=== PATIENT | male | born 1995 | race African-American/Black ===

== ENCOUNTER 2019-10-16 19:22 | Emergency (ER) | payer SELFPAY ==
--- NOTE | ~2019-10-16 | XR_ITS ---
EXAMINATION: XR chest 2V 10/16/2019 21:03 INDICATION: Chest pain and dyspnea PROCEDURE: 2 view chest COMPARISON: No prior studies for comparison. FINDINGS: The lungs are clear. The cardiomediastinal silhouette is within normal limits. There are no pleural effusions. There is no pneumothorax suspected. IMPRESSION: 1: NO ACUTE CARDIOPULMONARY DISEASE. Reviewed, dictated and finalized at location A.
[2019-10-16 19:29] VITALS: BP 130/76; PULSE 75; RESP 19; TEMP 36.2; O2SAT 100
--- NOTE | 2019-10-16 19:32 | ECG_ITS ---
Measurements Intervals [place] Rate: 76 P: 59 MD: 144 QRS: 51 QRSD: 89 T: 38 QT: 345 QTc: 390 Interpretive Statements SINUS RHYTHM NONSPECIFIC T-WAVE ABNORMALITY- INFERIOR LEADS BORDERLINE ECG Electronically Signed On 10-17-2019 6:48:06 CDT by Blas Palmer D.O.
[2019-10-16 19:44] LABS: Basophils Percent Auto 0.3 % (0.2-1.2); Eosinophils Absolute Auto 0.1 K/mm3 (0-0.3); Eosinophils Percent Auto 0.8 % (0-4.4); Immature Granulocyte Absolute 0.01 K/mm3 (0.00-0.031); Immature Granulocyte Percent A 0.2 % (0-0.5); Lymphocytes Absolute Auto 2.99 K/mm3 (0.9-3.2); Lymphocytes Percent Auto 45.2 % (18.3-44.2); Mean Corpuscular HGB Conc 34.1 g/dl (32-36); Mean Corpuscular Hemoglobin 30.5 pg (26-34); Mean Corpuscular Volume 89.4 fl (80-100); Mean Platelet Volume 9.9 fl (7.4-10.4); Monocytes Absolute Auto 0.6 K/mm3 (0.1-0.6); Monocytes Percent Auto 9.7 % (2.6-8.5); Neutrophils Absolute Auto 2.9 K/mm3 (1.3-6.7); Neutrophils Percent Auto 43.8 % (45.5-73.1); Platelet Count Result 224 k/mm3 (150-375); Red Blood Count 4.92 M/mm3 (4.6-6.20); White Blood Count 6.6 K/mm3 (4.5-10.0)
[2019-10-16 19:53] LABS: Prothrombin Time 12.8 Seconds (11.1-14.7)
[2019-10-16 19:54] LABS: Partial Thromboplastin Time 30.1 SECONDS (22.3-36.8)
[2019-10-16 20:08] LABS: Blood Urea Nitrogen 18 mg/dL (9-20); Calcium 9.1 mg/dL (8.4-10.2); Carbon Dioxide 24 mmol/L (22-30); Chloride 105 mmol/L (98-107); Estimated CRCL calculation 113 ml/min; Estimated Glomerular Filt Rate > 60; Glucose 81 mg/dL (75-110); Potassium 3.8 mmol/L (3.4-5.0); Sodium 139 mmol/L (137-145)
[2019-10-16 20:18] LABS: Troponin I < 0.012 ng/mL (0.000-0.034)
[2019-10-16] MEDS: KETOROLAC 30 MG/ML VIAL (*BKC) IV PUSH (21:35)
[2019-10-16] MEDS: SODIUM CHLORIDE 0.9% IV 1,000 ML 999 ML IV CONT (21:35)
[2019-10-16] MEDS: CYCLOBENZAPRINE HCL 10 MG TABLET PO (21:40)
[2019-10-16 22:34] VITALS: BP 123/75; PULSE 70; RESP 20; O2SAT 100
--- NOTE | 2019-10-16 23:19 | ED.GENADULT ---
HPI - General Adult General Chief complaint: Chest Pain Stated complaint: rt sided cp, left sided numbness x 3 months Time Seen by Provider: 10/16/19 20:32 History of Present Illness HPI narrative: Patient is a 24-year-old male who presents the ER with chest pain and left-sided numbness as well as neck and back pain. Patient reports he was at work and been lifting boxes when he had a sudden onset sharp pain in his right lateral chest wall up high near the shoulder. He then started feeling pain in his left neck and back in the leg. He then developed some transient numbness in his left lower extremity and then some numbness in his left forearm and hand. No known trauma. He has had this happen to him intermittently over the last 3 months. He seen his primary care doctor for this without formal diagnosis. Related Data Allergies Allergy/AdvReac Type Severity Reaction Status Date / Time amoxicillin Allergy Unknown Swelling Verified 10/16/19 19:24 LYSOL Allergy Severe Anaphylactic Uncoded 10/16/19 19:24 Shock Cat Dander Allergy Unknown Rash Uncoded 10/16/19 19:24 Dust Allergy Unknown Anaphylactic Uncoded 10/16/19 19:24 Shock Review of Systems Review of Systems: All systems reviewed & are unremarkable except as noted in HPI and below Constitutional: Constitutional: Denies chills, Denies fever(s) and Denies weakness ENT: Denies nasal congestion and Denies sore throat Cardiovascular: Cardiovascular: Reports chest pain, Denies rapid heart rate and Reports radiating jaw, neck or arm pain Respiratory: Respiratory: Denies cough, Denies dyspnea and Denies wheezing Musculoskeletal: Musculoskeletal: Reports back pain, Denies arthralgias, Denies joint swelling and Reports muscle cramps Neurologic: Denies dizziness, Denies focal weakness and Reports numbness PMFSH Past Medical History Medical History (Updated 10/16/19 @ 23:26 by Zachary Rosario MD) Anxiety Asthma Surgical History Surgical History (Updated 10/16/19 @ 23:21 by Zachary Rosario MD) No pertinent past surgical history Social History Social History (Updated 10/16/19 @ 23:22 by Zachary Rosario MD) Smoking status: Never smoker Gender identity (if verbalized by the patient): Male Exam Narrative: Exam Narrative: GENERAL: Well-appearing, well-nourished, and in no acute distress. HEAD: Normocephalic, atraumatic. NECK: Supple. Tender to palpation over the paraspinal musculature of the cervical spine as well as the trapezius musculature on the left side. No midline tenderness and full range of motion intact. CHEST: Clear to auscultation. No respiratory distress. HEART: Regular rate and rhythm. Normal peripheral pulses. EXTREMITIES: Normal range of motion. No edema. No focal weakness. SKIN: Warm, dry, no rash. NEURO: Decreased sharp touch in the left forearm not the proximal arm or the left lower extremity. Normal sensation right. Alert and oriented x3. Course Course Emergency Course: Patient reports pain and numbness improving significantly with muscle relaxers and anti-inflammatories. Patient seems to be expressing cervical radiculopathy on left side. Recommend follow-up with PCP and will give work note. Vital Signs Vital signs: Vital Signs Temperature 97.1 F L 10/16/19 19:29 Pulse Rate 75 10/16/19 19:29 Respiratory Rate 10/16/19 19:29 Blood Pressure 130/76 10/16/19 19:29 Pulse Oximetry 100 10/16/19 19:29 Temperature 97.1 F L 10/16/19 19:29 Pulse Rate 70 10/16/19 22:34 Respiratory Rate 10/16/19 22:34 Blood Pressure 123/75 10/16/19 22:34 Pulse Oximetry 100 10/16/19 22:34 Medical Decision Making Vital Signs Vital Signs: Vital Signs Temperature 97.1 F L 10/16/19 19:29 Pulse Rate 75 10/16/19 19:29 Respiratory Rate 10/16/19 19:29 Blood Pressure 130/76 10/16/19 19:29 Pulse Oximetry 100 10/16/19 19:29 Temperature 97.1 F L 10/16/19 19:29 Pulse Rate 70 10/16/19 22:34
--- NOTE | 2019-10-16 23:22 | PC.NURSE ---
Pt's. Mother called asking if pt is at the hospital and if she could speak with him. pt notified and at the phone at this time.
[2019-10-16 23:28] LABS: Troponin I < 0.012 ng/mL (0.000-0.034)
[2019-10-16 23:30] VITALS: BP 145/82; PULSE 63; RESP 17; O2SAT 100
== END 2019-10-16 23:30 | disposition home or self-care (01) ==
PROVIDERS: Emergency Provider Emergency Medicine
DX: R25.2 Cramp and spasm (principal); M54.12 Radiculopathy, cervical region
CPT/HCPCS: 36415; 71046; 80048; 84484; 85025; 85610; 85730; 93005; 96361; 96374; 99284; A9270; J1885; J7030